=== PATIENT | female | born 1980 | race Caucasian/White ===

== ENCOUNTER 2025-06-17 13:20 | Outpatient (AMB) | payer BC, SELFPAY ==
--- OUTSIDE RECORDS SUMMARY | 2025-01-20 05:30 | XMS_ITS ---
Author Organization [facility] [address] Address [address] [place] [address] Care Team Providers Care Medical Engineer Name Role Phone Analy Rosasin Unavailable [phone] VERONICA MTZ Unavailable [phone] Encounters Encounter Location Date Provider Diagnosis [facility] [address] [address] 01/20/2025 VERONICA MTZ Plan Of Treatment No Information Progress Notes * Mag STOREYDOB:[birth year] (45 yo F)Acc No.[id number]:01/20/2025 Patient: Derik nolanfidelJose ArmandoMag Provider: Diane MTZ PA-C :1980 A ge:44 Y S ex:Female Date:01/20/2025 Address:[address] [place] [id number] * Electronic signature of MARLYN MTZ PA-C on 06/17/2025 at 04:07 PM EST Sign off status: Pending * Provider: Diane MTZ PA-C Date: 0 01/20/2025 Generated for Printi ng/Faloring/eTransmitting on: 1 08/17/2024 04:07 PM EST
--- NOTE | 2025-06-17 13:33 | A.OFFPC_ITS ---
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 Presenting for a new patient visit to establish care, manage her ADHD, and address weight concerns. She has a diagnosis of ADHD and is currently taking Concerta, which was previously prescribed by an online provider. She reports the Concerta is working well and also helps with her social anxiety. The patient's primary concern is her weight, stating she has never been this heavy before, even during her pregnancies. She reports experiencing heartburn since her weight gain, which she manages with Tums. She does not currently exerc ise, citing fatigue after work and lack of motivation. The patient is in the initial stages of evaluation to be a living kidney donor for a friend and has upcoming scans and tests scheduled. mammogram: ordered colonoscopy: ordered today pap smear: s/p hysterectomy [facility] Surgical History H/O: hysterectomy Previous section Family History Father Alcohol abuse Mother No problems noted. 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 1. Little interest or pleasure in doing things: not at all 2. Feeling down, depressed, or hopeless: not at all 3. Trouble falling or staying asleep, or sleeping too much: several days 4. Feeling tired or having little energy: several days 5. Poor appetite or overeating: not at all 6. Feeling bad about yourself - or that you are a failure or have let yourself or your family down: not at all 7. Trouble concentrating on things, such as reading the newspaper or watching television: several days 8. Moving or speaking so slowly that other people could have noticed. Or the opposite - being so fidgety or restless that you have been moving around a lot more than usual: not at all 9. Thoughts that you would be better off or of hurting yourself in some way: not at all Total score: 3 Depression Screening Interpretation: Negative Depression Screening Done: Yes 16031 - PHQ-9 Billing: Yes Source: Developed by Drs. Brannon Burks, Lora Burr, Joo Mancuso and colleagues, with an educational alo from [employer]. Thrive Questionnaire Date Thrive assessed: 06/10/25 I am a: Patient What is your living situation today?: I have a steady place to live Within the past 12 months, did the food you bought not last and you didn't have the money to get more?: Never true Within the past 12 months, did you worry whether your food would run out before you got money to buy more?: Never true Do you have trouble paying for medicines?: No Do you have trouble getting transportation to medical appointments?: No Do you have trouble paying your heating and electricity bill?: No Do you have trouble taking care of your child, family member or friend?: No Do you have trouble with day-to-day activities such as bathing, preparing meals, shopping, managing finances, etc.?: No Are you currently unemployed and looking for a job?: No Are you interested in more education?: No Please select the resources that you would like help with: None Currently or been in a relationship where the following occur: No concerns reported THRIVE Score: 0 AUDIT C Alcohol Use Questionnaire (AUDIT-C) 1. How often do you have a drink containing alcohol?: Monthly or less 2. How many drinks containing alcohol do you have on a typical day when you are drinking?: 1 or 2 3. How often do you have six or more drinks on one occasion?: Less than monthly Total Score: 2 LIZA-7 AMB Questionnaire LIZA-7 Date LIZA - 7 assessed: 06/17/25 Feeling nervous, anxious, or on edge: 0 = Not at all Not being able to stop or control worryin = Not at all Worrying too much about different things: 0 = Not at all Trouble relaxin = Not at all Being so restless that it is hard to sit still: 0 = Not at all Becoming easily annoyed or irritable: 0 = Not at all Feeling afraid as if something awful might happen: 0 = Not at all Total LIZA-7 score (0-4 normal; 5-9 mild; 10-14 moderate; 15-21 severe): 0 Source: Developed by Drs. Brannon Bukrs, Lora Burr, Joo Mancuso and colleagues, with an educational alo from [employer]. Review of Systems Const Denies body aches, Denies chills, Denies fever(s), Denies headache(s) and Denies poor appetite Eyes Reports no additional complaints ENT Denies dizziness and Denies headache(s) Card Denies chest pain, Denies edema, Denies irregular heart rhythm, Denies lightheadedness and Denies dyspnea Resp Denies dyspnea GI Denies abdominal pain, Denies constipation, Reports heartburn, Denies diarrhea, Denies nausea and Denies vomiting Reports no additional complaints Musc Reports no additional complaints and Denies abnormal gait Skin/Breast Reports system reviewed and no additional complaints, except as documented Neuro Denies abnormal gait, Denies dizziness and Denies headache(s) Psych Reports no additional complaints Physical exam (Primary Care) Vital Signs: Last Vital Signs Temp 97.3 F 06/17/25 13:41 Pulse 80 06/17/25 13:41 BP 130/86 06/17/25 13:41 Pulse Ox 98 06/17/25 13:41 Oxygen Delivery Method Room Air 06/17/25 13:41 BMI result Body Mass Index 34.3 Tobacco/Smoking Status: Tobacco use Status Tobacco use date assessed 06/17/25 06/17/25 13:47 Patient Tobacco Use Status Never used Tobacco 06/17/25 13:47 Tobacco use type Cigarette 06/17/25 13:47 e-Cigarette/Vaping Use Never Used 06/17/25 13:47 PHQ-9: PHQ-9 Score PHQ-9: Total score 3 06/17/25 13:39 Depression Screening Interpretation: Negative Thrive Assessment: Date of Thrive Assessment Date Thrive assessed 06/10/25 06/17/25 13:34 Currently or been in a relationship where the following occur: No concerns reported Const General: cooperative, healthy appearing, comfortable and no acute distress Orientation/consciousness: patient oriented x3 HENMT Head: Yes normocephalic Ears: hearing grossly normal bilaterally General nose exam: Normal external nose present Eyes General: appearance normal, both eyes and all related structures Conjunctivae: conjunctivae normal Neck Neck: Yes full ROM and Yes no lymphadenopathy Resp Effort & Inspection: normal respiratory effort Auscultation: clear to auscultation bilaterally, no crackles, no rales, no rhonchi and no wheezes Cardio Rate: regular rate Rhythm: regular rhythm Skin General skin exam: no rashes or lesions noted Neuro General: patient oriented x3 Gait exam (Neuro): Normal gait present Extrem General: Yes normal to inspection, Yes full ROM and No edema Psych Affect: normal affect Attitude: cooperative Insight: Good insight present (Psych) Judgement: Good judgement present (Psych) Coding Level of Care Code New Pt Level 4 (73358) Diagnoses Family history of colon cancer Z80.0 Family history of Crohn's disease Z83.79 ADHD F90.9 Vitamin D deficiency E55.9 Obesity (BMI 30.0-34.9) E66.9 Pre-diabetes R73.03 Heartburn R12 Additional Codes PHQ-9 - 27446 - PHQ-9 Billing: Yes ([id number]) Assessment & Plan Assessment & Plan (1) Family history of colon cancer: Comment: grandmother @91 Code(s): Z80.0 - Family history of malignant neoplasm of digestive organs Category: Medical Plan: Patient has not yet had colon cancer screening. Referral was placed to GI today. (2) Family history of Crohn's disease: Comment: son and daughter Code(s): Z83.79 - Family history of other diseases of the digestive system Category: Medical Plan: See above (3) ADHD: Code(s): F90.9 - Attention-deficit hyperactivity disorder, unspecified type Category: Medical Plan: Patient has been using Concerta as prescribed by psych but is no longer following with this provider. PLan to maintain this Rx and was sent today. (4) Vitamin D deficiency: Code(s): E55.9 - Vitamin D deficiency, unspecified Category: Medical Plan: Ordered for repeat blood work. (5) Obesity (BMI 30.0-34.9): Code(s): E66.9 - Obesity, unspecified Category: Medical Plan: Healthy diet and regular exercise is encouraged. Discussed GLP injections however she will have to check with the transplant team prior to initiating this medication. (6) Pre-diabetes: Code(s): R73.03 - Prediabetes Category: Medical Plan: Decrease the amount of carbohydrates such as pasta, bread, rice, and potatoes and limit the amount of sweets. Although fruits are generally healthy they should be eaten in moderation as they are still high in sugar. (7) Heartburn: Code(s): R12 - Heartburn Category: Medical Plan: Avoid trigger foods such as citrus, tomato products, soda, caffeine, spicy foods and other foods that may be irritating to your stomach. Avoid laying flat 3-4 hours after eating and elevate the head of the bed 30 degrees to prevent acid from moving into the esophagus. Continue on Tums prn Plan This note was constructed using voice recognition software. While every effort has been made to ensure accuracy and oracle manager, still areas may have been included sometimes these areas may affect the content or meeting of the given symptoms. Total time spent caring for the patient today was 30 minutes. This includes time spent before the visit reviewing the chart, time spent during the visit, and time spent after the visit and documentation. Patient was informed and verbally consented to the use of an ambient scribe for clinic note documentation during this visit. Orders: Orders MM tomosynthesis screening BI Today Z12.31 - Encounter for screening mammogram for malignant neoplasm of breast TSH reflex Free T4 Today Z13.29 - Encounter for screening for other suspected endocrine disorder Vitamin D 25-OH Total Today Z13.21 - Encounter for screening for nutritional disorder Vitamin B12 and Folate Today Z13.21 - Encounter for screening for nutritional disorder Referrals Gastroenterology Referral Z12.11 - Encounter for screening for malignant neoplasm of colon, Z80.0 - Family history of malignant neoplasm of digestive organs
[2025-06-17 13:41] VITALS: BP 130/86; PULSE 80; TEMP 36.3; O2SAT 98; BMI 34.3
--- OUTSIDE RECORDS SUMMARY | 2025-06-17 16:07 | XMS_ITS | Patient Health Record ---
[facility] [address] Address [address] [place] [address] Care Team Providers Care Hole Digger Name Role Phone Enedelia Rosas Unavailable [phone] SMITHVERONICA CAO Unavailable [phone] Allergies No Known Allergies Reason For Referral No Information Medications Medication SIG (Take, Route, Frequency, Duration) Notes Start Date End Date Status Phentermine HCl 15 MG Capsule 1 capsule Orally Once a day; Duration: 30 days 06/10/2021 Active Multi Complete - Capsule as directed Orally Active Vitamin D Active Social History Tobacco Use: Social History Observation Description Date Details (start date - stop date) Current Smoker NA - NA Social History Tobacco Use: Social Info Question Answer Notes Tobacco Use/Smoking Are you a current smoker How often do you smoke cigarettes? some days, but not every day Section Notes: smoked occasionally smoked occasionally smoked occasionally smoked occasionally Problems Problem Type SNOMED Code ICD Code Onset Dates Problem Status W/U Status Risk Notes Problem Obesity (913813021) Other obesity (E66.8) Active confirmed Problem Body mass index 30.00 to 34.99 ([id number]) BMI 31.0-31.9,henny lt (Z68.31) Active confirmed Problem Body mass index 30+ - obesity ([id number]) BMI 30.0-30.9,henny lt (Z68.30) Active confirmed Plan Of Treatment No Information Insurance Providers Payer Name Payer Address Payer Phone Subscriber Number Group Number Insured Name Patient Relationship to Insured Coverage Start Date Coverage End Date [facility] [address] [place] [address] [id number] Mag Marks Self - patient is the insured Medications Administered Medication Instructions Date of Administration Dosage Notes MICC B12 INJECTION 05/27/2021 lot # [id number] MICC B12 INJECTION 06/10/2021 lot # [id number] MICC B12 INJECTION 06/28/2021 Medical (General) History Surgical History Surgery Date(Month/Year) c sections x 2 Hospitalization History Reason Date(Month/Year) child births x4 - 2 day stays
--- OUTSIDE RECORDS SUMMARY | 2025-06-17 16:07 | XMS_ITS | Clinical Summary ---
Author Organization [facility] Address [facility] [place] [address] [address] Phone Care Team Providers Care Stage Hand Name Role Phone Unknown, Unknown Primary Care Provider Mulugeta bull Allergies No known active allergies Social History Tobacco Use Types Packs/Day Years Used Date Smoking Tobacco: Never Assessed Education Answer Date Recorded Are you interested in more education? Not on raymon e 12/02/2022 Are you concerned about learning? Not on file 12/02/2022 No 12/02/2022 No 12/02/2022 Digital Access Answer Date Recorded No 01/02/2023 No 01/02/2023 Reliable internet access at home? Not on file 01/02/2023 Device with a working camera? Not on file Comments Unknown Sex and Gender Information Value Date Recorded Sex Assigned at Not on file Legal Sex Female 9:26 AM EDT Gender Identity Not on file Sexual Orientation Not on file Last Filed Vital Signs Vital Sign Reading Time Taken Comments Blood Pressure 104/71 11/18/2021 1:00 PM EDT Pulse 77 11/18/2021 1:00 PM EDT Temperature 37 C (98.6 F) 11/18/2021 9:36 AM EDT Respiratory Rate 18 11/18/2021 1:00 PM EDT Oxygen Saturation 98% 11/18/2021 1:00 PM EDT Inhaled Oxygen Concentration - - Weight 70.3 kg (155 lb) 11/18/2021 9:36 AM EDT Height 162.6 cm (5' 4 ) 11/18/2021 9:36 AM EDT Body Mass Index 26.61 11/18/2021 9:36 AM EDT Plan of Treatment Not on file Medical Devices Not on file Insurance AETNA HMO POS EPO AETNA HMO POS EPO AET[employer] HMO POS EPO O POS EPO O POS EPO AETNA HMO POS EPO AETNA O POS EPO AETNA HMO POS EPO AETNA O POS EPO Care Teams Stage Hand Relationship Specialty Start Date End Date Unknown, Unknown, PCP - General 11/22/21 Additional Source Comments The information contained in this document represents components of the legal health record. It is not the complete legal health record.[facility]
--- OUTSIDE RECORDS SUMMARY | 2025-06-17 16:07 | XMS_ITS | Clinical Summary ---
Author Organization [facility] Address [address] [place] [address] Care Team Providers Care Special Assemblies Supervisor Name Role Phone Unavailable Primary Care Provider Unavailabl e Allergies No known active allergies Medications Medication Sig Dispensed Refills Start Date End Date Status ferrous sulfate 325 (65 FE) MG tablet Take 1 tablet (325 mg total) by mouth every other day. 60 tablet 0 01/27/2022 Active acetaminophen (TYLENOL) 325 MG tablet Take 2 tablets (650 mg total) by mouth every 6 (six) hours. 30 tablet 0 01/27/2022 Active ibuprofen 600 MG tablet Take 1 tablet (600 mg total) by mouth every 6 (six) hours. 30 tablet 0 01/27/2022 Active docusate sodium 100 MG CAPS Take 100 mg by mouth daily. 10 capsule 0 01/27/2022 Active polyethylene glycol (MIRALAX) 17 g packet Take 17 g by mouth daily. 14 each 0 01/27/2022 Active Social History Tobacco Use Types Packs/Day Years Used Date Smoking Tobacco: Every Day Smokeless Tobacco: Never Alcohol Use Standard Drinks/Week Comments Yes 0 (1 standard drink = 0.6 oz pur e alcohol) socially Sex and Gender Information Value Date Recorded Sex Assigned at Female 06/21/2021 1:31 PM EST Gender Identity Not on file Sexual Orientation Not on file Job Start Date Occupation Industry Not on file Not on file Not on file Last Filed Vital Signs Vital Sign Reading Time Taken Comments Blood Pressure 117/68 01/27/2022 7:58 AM EDT Pulse 80 01/27/2022 7:58 AM EDT Temperature 36.7 C (98.1 F) 01/27/2022 7:58 AM EDT Respiratory Rate 12 01/27/2022 7:58 AM EDT Oxygen Saturation 98% 01/27/2022 4:20 AM EDT Inhaled Oxygen Concentration - - Weight 83.9 kg (185 lb) 01/23/2022 9:32 AM EDT Height 167.6 cm (5' 6 ) 01/23/2022 9:32 AM EDT Body Mass Index 29.86 01/23/2022 9:32 AM EDT Plan of Treatment Health Maintenance Due Date Last Done Comments Hepatitis B Vaccines (1 of 3 - 3-dose series) 1979 Hepatitis C Screening 1979 Pneumococcal Vaccine (1 of 2 - PCV) 1985 Depression Screening 1991 BMI Counseling 1997 Preventative Health Evaluation 1997 Tobacco Cessation Counseling 1997 DTap / Tdap / Td (1 - Tdap) 1998 Cervical Cancer Screening (P ap Smear) 02/29/2000 Colon Cancer Screening (Colonoscopy) 02/29/2024 COVID-19 Vaccine (2 - 2024-2 6 season) 2025 09/22/2020 Influenza Vaccine (#1) 2025 RSV Ped < 20 months Aged Out No longe r eligible based on patient's age to complete this topic Medical Devices Implanted Type Area Firewall Security Engineer Device Identifier Shelf Expiration Date Model / Serial / Lot Hemostat Surg Ah Nohemi 3gm Crba-Davl [id number] - [id number] Implanted:Qt y: 1 on 01/26/2022 by Epifanio Anderson MD at [facility] [place] [facility] Hemostatic Agent N/A: Abdomen CR BARD - DAVOL DIV 09/02/2024 [id number] / / [id number] Advance Directives For more information, please contact: [phone] Latest Code Status on File Code Status Date Activated Date Inactivated Comments Full Code 01/26/2022 3:11 PM 01/27/2022 4:24 PM This code status was ascertained in the following way: discussion with patient . Code Status History Code Status Date Activated Date Inactivated Comments Full Code 07/05/2021 8:56 AM 07/05/2021 8:10 PM Thi s code status was ascertained in the following way: Patient discussion. .
--- OUTSIDE RECORDS SUMMARY | 2025-06-17 16:07 | XMS_ITS | Clinical Summary ---
Author Organization [facility] it Address [address] [place] [address] Care Team Providers Care Construction Trades Teacher Name Role Phone Mike Mckinley DO Primary Care Provider [phone] Surgical History Surgery Date Site/Laterality Comments HYSTERECTOMY PROCEDURE: HISTORICAL HYSTERECTOMY Family History Relation Name Status Comments Father Alive Mother Alive Social History Tobacco Use Types Packs/Day Years Used Date Smoking Tobacco: Never Smokeless Tobacco: Never Alcohol Use Standard Drinks/Week Comments Yes 0 (1 standard drink = 0.6 oz pur e alcohol) Comments Unknown Sex and Gender Information Value Date Recorded Sex Assigned at Not on file Legal Sex Female 7:57 AM EST Gender Identity Not on file Sexual Orientation Not on file Obstetrics History Last Filed Vital Signs Vital Sign Reading Time Taken Comments Blood Pressure 114/68 06/14/2022 1:56 PM EST Pulse 77 06/14/2022 1:56 PM EST Temperature - - Respiratory Rate - - Oxygen Saturation - - Inhaled Oxygen Concentration - - Weight 90.7 kg (200 lb) 06/14/2022 1:56 PM EST Height 167.6 cm (5' 6 ) 06/14/2022 1:56 PM EST Body Mass Index 32.28 06/14/2022 1:56 PM EST Plan of Treatment Health Maintenance Due Date Last Done Comments Breast Cancer Screening 1979 Colorectal Cancer Screening: Colonoscopy 1979 DTaP,Tdap,and Td Vaccines (1 - Tdap) 1998 Hepatitis B Vaccines (1 of 3 - 19+ 3-dose series) 1998 Cervical Cancer Screening: P ap Smear 02/29/2000 HIV Screening 07/09/2022 Hepatitis C Screening 07/09/2022 Social Influencers of Health Screening 07/09/2022 Depression Screening 08/06/2024 COVID-19 Vaccine (2024-2 6 season) 2025 06/13/2021, 09/12/2020, 09/01/2020 Influenza Vaccine (#1) 2025 06/01/2022 RSV Immunization Adult Patients (1 - 1-dose 75+ series) 2054 HIB Vaccines Aged Out No longer eligi ble based on patient's age to complete this topic HPV Vaccines Aged Out No longer eligi ble based on patient's age to complete this topic Hepatitis A Vaccines Aged Out No long er eligible based on patient's age to complete this topic IPV Vaccines Aged Out No longer eligi ble based on patient's age to complete this topic MMR Vaccines Aged Out No longer eligi ble based on patient's age to complete this topic Meningococcal ACWY Vaccine Aged Out N o longer eligible based on patient's age to complete this topic Meningococcal B Vaccine Aged Out No l onger eligible based on patient's age to complete this topic Pneumococcal Vaccine: Pediatrics (0 to 5 Years) and At-Risk Patients (6 to 49 Years) Aged Out No longer eligible b ased on patient's age to complete this topic RSV Immunization Patients Under 20 months Aged Out No longer eligible b ased on patient's age to complete this topic Varicella Vaccines Aged Out No longer eligible based on patient's age to complete this topic Medical Devices Implanted Type Area Editor Producer Device Identifier Shelf Expiration Date Model / Serial / Lot Hemostat Surg Ah Nohemi 3gm Crba-Davl [id number] Implanted:Qty : 1 on 01/26/2022 by Epifanio Anedrson MD Implants N/A: Abdomen CR BARD - DAVOL DIV 09/02/[address] A / / [id number] Care Teams Construction Trades Teacher Relationship Specialty Start Date End Date Mike Mckinley DO [address] [facility] [place] [address] PCP - General 06/09/22
== END 2025-06-17 14:25 | disposition home or self-care (01) ==
LOC: HO.HMCH 13:21
DX: R73.03 Prediabetes (principal); E55.9 Vitamin D deficiency, unspecified; E66.9 Obesity, unspecified; Z68.34 Body mass index [BMI] 34.0-34.9, adult; Z80.0 Family history of malignant neoplasm of digestive organs; Z83.79 Family history of other diseases of the digestive system; F90.9 Attention-deficit hyperactivity disorder, unspecified type; R12 Heartburn

== ENCOUNTER → 2025-06-17 13:20 | Outpatient (BNVA) | payer BC, SELFPAY | DX: R73.03 Prediabetes (principal); F90.9 Attention-deficit hyperactivity disorder, unspecified type; E55.9 Vitamin D deficiency, unspecified; E66.9 Obesity, unspecified; R12 Heartburn; Z68.34 Body mass index [BMI] 34.0-34.9, adult; Z79.899 Other long term (current) drug therapy; Z80.0 Family history of malignant neoplasm of digestive organs; Z83.79 Family history of other diseases of the digestive system | CPT/HCPCS: 96127 ==

== ENCOUNTER 2025-06-26 14:19 | Outpatient (REF) | payer BC, SELFPAY ==
--- OUTSIDE RECORDS SUMMARY | 2025-01-20 05:30 | XMS_ITS ---
Author Organization [facility] [address] Address [address] [place] [address] Care Team Providers Care Pharmacy Data Analyst Name Role Phone Analy Rosasin Unavailable [phone] VERONICA MTZ Unavailable [phone] Encounters Encounter Location Date Provider Diagnosis [facility] [address] [address] 01/20/2025 VERONICA MTZ Plan Of Treatment No Information Progress Notes * Mag STOREYDOB:[birth year] (45 yo F)Acc No.[id number]:01/20/2025 Patient: Derik nolanfidelJose ArmandoMag Provider: Diane MTZ PA-C :1980 A ge:44 Y S ex:Female Date:01/20/2025 Address:[address] [place] [id number] * Electronic signature of MARLYN MTZ PA-C on 06/26/2025 at 02:40 PM EST Sign off status: Pending * Provider: Diane MTZ PA-C Date: 0 01/20/2025 Generated for Printi ng/Faxing/eTransmitting on: 1 08/26/2024 02:40 PM EST
--- NOTE | ~2025-06-26 | MM_ITS ---
EXAMINATION: MM SCREENING DIGITAL BREAST TOMOSYNTHESIS, BILATERAL CLINICAL INFORMATION: Screening. Asymptomatic. COMPARISON: Mammography: Comparison is made with available priors TECHNIQUE: Digital breast mammography with tomosynthesis is performed in both the craniocaudal and mediolateral oblique views along with computer-aided detection (CAD). FINDINGS: There are scattered areas of fibroglandular density. There are no significant masses, abnormal calcifications, or other abnormalities. MM/MM tomosynthesis screening BI IMPRESSION: No mammographic evidence of malignancy. ASSESSMENT: BI-RADS Category 1: Negative RECOMMENDATION: Routine annual mammography screening. 1 year F/U This examination should not preclude the clinical evaluation of a suspicious palpable abnormality. This patient's information was entered into a reminder system with a target due date for their next mammogram. Electronically signed by: Candi Trinh DO 06/30/2025 09:06 AM KARL
--- OUTSIDE RECORDS SUMMARY | 2025-06-26 14:41 | XMS_ITS | Patient Health Record ---
[facility] [address] [address] [place] [address] Care Team Providers Care Hypnotherapist Name Role Phone Enedelia Rosas Unavailable [phone] SMITHVERONICA CAO Unavailable [phone] Allergies No Known Allergies Reason For Referral [...] Status W/U Status Risk Notes Problem Obesity (592553915) Other obesity (E66.8) Active confirmed Problem Body mass index 30.00 to 34.99 ([id number]) BMI 31.0-31.9,henny lt (Z68.31) Active confirmed Problem Body mass index 30+ - obesity (588219145) BMI 30.0-30.9,henny lt (Z68.30) Active confirmed Plan Of Treatment No Information Insurance Providers Payer Name Payer Address Payer Phone Subscriber Number Group Number Insured Name Patient Relationship to Insured Coverage Start Date Coverage End Date [facility] [address] [place] [address] [id number] E Mag Marks Self - patient is the insured Medications Administered Medication Instructions Date of Administration Dosage Notes MICC B12 INJECTION 05/27/2021 lot # [id number] MICC B12 INJECTION 06/10/2021 lot # [id number] MICC B12 INJECTION 06/28/2021 Medical (General) History Surgical History Surgery Date(Month/Year) c sections x 2 Hospitalization History Reason Date(Month/Year) child births x4 - 2 day stays
--- OUTSIDE RECORDS SUMMARY | 2025-06-26 14:41 | XMS_ITS | Data Portability ---
Author Organization [place] - [facility], [facility] Address [address] [place] [address] Care Team Providers Care General Magistrate Name Role Phone MEE FRAZIER Primary Care Provider Assessment No assessment recorded. Plan of Treatment Reminders Order Date Submit Date Provider Last Modified By Organization Details Last Modified Time Details Appointments None recorded. Lab urinalysis , dipstick 2021 [email or web address] In-Office Order, Internal Use Only DO Not Attach Compendium DO Not Attach Compendium, Do Not Delete/merge, [id number] 11:34:23 CBC w/ auto diff 2021 [facility], [address] [place] [address], [id number], 16:54:35 type + screen, serum 2021 [facility], [address] [place] [address], [address], 17:36:45 test, urine 2021 [email or web address] In-Office Order, Internal Use Only DO Not Attach Compendium DO Not Attach Compendium, Do Not Delete/merge, [id number] 09:41:00 Referral None recorded. Procedures None recorded. Surgeries None recorded. Imaging MAMMO, screening, digital, bilateral - If dense breasts, please proceed with bilateral breast screening ultrasound . 2021 022 [facility], [address], [place], [address], 16:18:31 Medication Orders None recorded. Patient TargetsNo targets recorded. Patient Instructions Encounter Date Encounter Id Patient Instructions Last Modified By Organization Details Last Modified Time 12/07/2021 [id number] heavy menstrual periods: care instructions rberke Not available 12/07/2021 17:20:40 iron deficiency anemia: care instructions rberke Not available 12/07/2021 17:20:40 02/14/2022 [id number] iron deficiency anemia: care instructions rberke Not available 02/14/2022 10:51:48 Reason for Referral None Reported. Results Created Date Observation Date Name Description Value Unit Range Abnormal Flag Note LastModifiedBy Organization Detail LastModifiedTime 12/03/1912/02/2021 pregn donna test, urine Result negati ve Not Available In-Office Order Internal Use Only DO Not Attach Compendium DO Not Attach Compendium, Do Not Delete/merge, [id number] 12/02/2021 09:17:40 01/25/20 22 01/24/2022 BUN BUN 18 mg/dL 7-17 high Perfo [place]med at [facility] [place] [address] [place] [id number] , Allis on MRyan bravo MD [facility] CLIA [id number] CL 0623 Not Available [address], [address], 01/24/2022 16:10:03 01/25/20 22 01/24/2022 CREAT ININE creatinine 1.0 mg/dL 0.5-1. 0 Not Available [address], [address], 01/24/2022 16:10:05 01/25/20 22 01/24/2022 CREAT ININE estimated GFR >60.0 >60.0 MDRD in mL/mi n/1.7 3 sq meter s. For Afric an Ameri cans, multi ply by 1.21. Perfo [place]med at [facility] [place] [address] [place] [address] and [facility] [place] [address] , Allis on M. Aleksandra bravo MD [facility] tor CLIA [id number] CL 0623 Not Available [address], [address], 01/24/2022 16:10:05 01/25/20 22 01/24/2022 CBC WBC 4.3 K/uL 4.0-10 .5 Not Available [address], [address], 01/24/2022 16:54:35 01/25/20 22 01/24/2022 CBC RBC 3.95 M/uL 4.2-5. 4 low Not Available [address], [address], 01/24/2022 16:54:35 01/25/20 22 01/24/2022 CBC HGB 9.2 g/dL 12.5-1 6.0 low Not Available [address], [address], 01/24/2022 16:54:35 01/25/20 22 01/24/2022 CBC HCT 29.3 % 37-47 low Not Available [address], [address], 01/24/2022 16:54:35 01/25/20 22 01/24/2022 CBC MCV 74.3 fL 78-100 low Not Available [address], [address], 01/24/2022 16:54:35 01/25/20 22 01/24/2022 CBC MCH 23.4 pg 25-33 low Not Available [address], [address], 01/24/2022 16:54:35 01/25/20 22 01/24/2022 CBC MCHC 31.4 g/dL 32-36 low Not Available [address], [address], 01/24/2022 16:54:35 01/25/20 22 01/24/2022 CBC RDW 19.9 % 12.1-1 6.2 high Not Available [address], [address], 01/24/2022 16:54:35 01/25/20 22 01/24/2022 CBC plt 228 K/uL 150-45 0 Not Available [address], [address], 01/24/2022 16:54:35 01/25/20 22 01/24/2022 CBC MPV 8.5 fL 7.4-11 .4 Not Available [address], [address], 01/24/2022 16:54:35 01/25/20 22 01/24/2022 CBC differential type AUTOMA SIOMARA Not Available [address], [address], 01/24/2022 16:54:35 01/25/20 22 01/24/2022 CBC neutro 67.5 % 44-74 Not Available [address], [address], 01/24/2022 16:54:35 01/25/20 22 01/24/2022 CBC lymph 22.9 % 20-48 Not Available [address], [address], 01/24/2022 16:54:35 01/25/20 22 01/24/2022 CBC mono 8.7 % 2-12 Not Available [address], [address], 01/24/2022 16:54:35 01/25/20 22 01/24/2022 CBC eosin 0.0 % 0-6 Not Available [address], [address], 01/24/2022 16:54:35 01/25/20 22 01/24/2022 CBC baso 0.9 % 0-2 Not Available [address], [address], 01/24/2022 16:54:35 01/25/20 22 01/24/[address], abs 3.0 K/uL 1.8-7. 8 Not Available [address], [address], 01/24/2022 16:54:35 01/25/20 22 01/24/[address], abs 1.0 K/uL 1.0-3. 2 Not Available [address], [address], 01/24/2022 16:54:35 01/25/20 22 01/24/[address], abs 0.4 K/uL 0.0-0. 8 Not Available [address], [address], 01/24/2022 16:54:35 01/25/20 22 01/24/[address], abs 0.0 K/uL 0.0-0. 5 Not Available [address], [address], 01/24/2022 16:54:35 01/25/20 22 01/24/[address], abs 0.0 K/uL 0.0-0. 2 Perfo rmed at [facility] [place] [facility] [place] [address] [facility] [place] [address] , Allis on MRyan bravo MD [facility] tor CLIA [id number] CL 0623 Not Available [address], [address], 01/24/2022 16:54:35 01/25/20 22 01/24/2022 TYPE AND SCREE N ABO/Rh O POSITI VE Not Available [address], [address], 01/24/2022 17:36:45 01/25/20 22 01/24/2022 TYPE AND SCREE N antibody screen NEGATI VE Not Available [address], [address], 01/24/2022 17:36:45 01/25/20 22 01/24/2022 TYPE AND SCREE N bb comment chart Testi ng perfo rmed at [facility] [place] [facility] [address] [address] , Allis on Aleksandra bravo MD [facility] [place], CLIA [id number] CL062 3 Not Available [address], [address], 01/24/2022 17:36:45 04/06/20 22 04/07/2022 BUN/C REATI NINE RATIO urea nitrogen (BUN) 13 mg/dL 7-25 normal Not Available [facility] [address], [address], 04/07/2022 03:47:14 04/06/20 22 04/07/2022 BUN/C REATI NINE RATIO creatinine 0.96 mg/dL 0.50-0 .99 normal Not Available [facility] [address], [address], 04/07/2022 03:47:14 04/06/20 22 04/07/2022 BUN/C REATI NINE RATIO eGFR 75 mL/mi n/1.7 3m2 > or = 60 normal The eGFR is based on the CKD-E PI 2020 equat ion. To calcu late the new eGFR from a previ ous Creat inine or Cysta tin C resul t, go to https :[email or web address] [email or web address] suggs bijan s/ kdoqi /gfr% 5Fcal culat or Not Available [facility] [place] [facility] [address], [place], [address], 04/07/2022 03:47:14 04/06/20 22 04/07/2022 BUN/C REATI NINE RATIO BUN/creatini ne ratio NOT APPLIC ABLE (calc ) 6-22 Not Available [facility] [place] [facility] [address], [place], [address], 04/07/2022 03:47:14 04/06/20 22 04/07/2022 CBC (INCL UDES DIFF/ PLT) white blood cell count 6.3 thous and/u L 3.8-10 .8 normal Not Available [facility] [place] [facility] [address], [place], [address], 04/07/2022 03:47:15 04/06/20 22 04/07/2022 CBC (INCL UDES DIFF/ PLT) red blood cell count 5.04 candida on/uL 3.80-5 .10 normal Not Available [facility] [place] [facility] [address], [place], [address], 04/07/2022 03:47:15 04/06/20 22 04/07/2022 CBC (INCL UDES DIFF/ PLT) hemoglobin 10.5 g/dL 11.7-1 5.5 low Not Available [facility] [place] [facility] [address], [place], [address], 04/07/2022 03:47:15 04/06/20 22 04/07/2022 CBC (INCL UDES DIFF/ PLT) hematocrit 36.2 % 35.0-4 5.0 normal Not Available [facility] [place] [facility] [address], [place], [address], 04/07/2022 03:47:15 04/06/20 22 04/07/2022 CBC (INCL UDES DIFF/ PLT) MCV 71.8 fL 80.0-1 00.0 low Not Available [facility] [place] [facility] [address], [place], [address], 04/07/2022 03:47:15 04/06/20 22 04/07/2022 CBC (INCL UDES DIFF/ PLT) MCH 20.8 pg 27.0-3 3.0 low Not Available [facility] [place] [facility] [address], [place], [address], 04/07/2022 03:47:15 04/06/20 22 04/07/2022 CBC (INCL UDES DIFF/ PLT) MCHC 29.0 g/dL 32.0-3 6.0 low Not Available [facility] [place] [facility] [address], [place], [address], 04/07/2022 03:47:15 04/06/20 22 04/07/2022 CBC (INCL UDES DIFF/ PLT) RDW 18.4 % 11.0-1 5.0 high Not Available [facility] [place] [facility] [address], [place], [address], 04/07/2022 03:47:15 04/06/20 22 04/07/2022 CBC (INCL UDES DIFF/ PLT) platelet count 256 thous and/u L 140-40 0 normal Not Available [facility] [place] [facility] [address], [place], [address], 04/07/2022 03:47:15 04/06/20 22 04/07/2022 CBC (INCL UDES DIFF/ PLT) MPV 10.7 fL 7.5-12 .5 normal Not Available [facility] [place] [facility] [address], [place], [address], 04/07/2022 03:47:15 04/06/20 22 04/07/2022 CBC (INCL UDES DIFF/ PLT) absolute neutrophils 3900 cells /uL 1500-7 800 normal Not Available [facility] [place] [facility] [address], [place], [address], 04/07/2022 03:47:15 04/06/20 22 04/07/2022 CBC (INCL UDES DIFF/ PLT) absolute lymphocytes 1802 cells /uL 850-39 00 normal Not Available [facility] [place] [facility] [address], [place], [address], 04/07/2022 03:47:15 04/06/20 22 04/07/2022 CBC (INCL UDES DIFF/ PLT) absolute monocytes 567 cells /uL 200-95 0 normal Not Available [facility] [place] [facility] [address], [place], [address], 04/07/2022 03:47:15 04/06/20 22 04/07/2022 CBC (INCL UDES DIFF/ PLT) absolute eosinophils 0 cells /uL 15-500 low Not Available [facility] [place] [facility] [address], [place], [address], 04/07/2022 03:47:15 04/06/20 22 04/07/2022 CBC (INCL UDES DIFF/ PLT) absolute basophils 32 cells /uL 0-200 normal Not Available [facility] [place] [facility] [address], [place], [address], 04/07/2022 03:47:15 04/06/20 22 04/07/2022 CBC (INCL UDES DIFF/ PLT) neutrophils 61.9 % normal Not Available [facility] [place] [facility] [address], [place], [address], 04/07/2022 03:47:15 04/06/20 22 04/07/2022 CBC (INCL UDES DIFF/ PLT) lymphocytes 28.6 % normal Not Available [facility] [place] [facility] [address], [place], [address], 04/07/2022 03:47:15 04/06/20 22 04/07/2022 CBC (INCL UDES DIFF/ PLT) monocytes 9.0 % normal Not Available [facility] [place] [facility] [address], [place], [address], 04/07/2022 03:47:15 04/06/20 22 04/07/2022 CBC (INCL UDES DIFF/ PLT) eosinophils 0.0 % normal Not Available [facility] [place] [facility] [address], [place], [address], 04/07/2022 03:47:15 04/06/20 22 04/07/2022 CBC (INCL UDES DIFF/ PLT) basophils 0.5 % normal Not Available [facility] [place] [facility] [address], [place], [address], 04/07/2022 03:47:15 06/02/20 22 06/02/2022 IRON, TIBC AND MARKUS TIN PANEL iron, total 68 mcg/d L 40-190 normal Not Available [facility] [place] [facility] [address], [place], [address], 06/02/2022 23:12:06 06/02/20 22 06/02/2022 IRON, TIBC AND MARKUS TIN PANEL iron binding capacity 395 mcg/d L_(ca lc) 250-45 0 normal Not Available [facility] [place] [facility] [address], [place], [address], 06/02/2022 23:12:06 06/02/20 22 06/02/2022 IRON, TIBC AND MARKUS TIN PANEL % saturation 17 %_(ca lc) 16-45 normal Not Available [facility] [place] [facility] [address], [place], [address], 06/02/2022 23:12:06 06/02/20 22 06/02/2022 IRON, TIBC AND MARKUS TIN PANEL ferritin 13 NG/mL 16-232 low Not Available [facility] [place] [facility] [address], [place], [address], 06/02/2022 23:12:06 06/02/20 22 06/02/2022 CBC (INCL UDES DIFF/ PLT) white blood cell count 6.9 thous and/u L 3.8-10 .8 normal Not Available [facility] [place] [facility] [address], [place], [address], 06/02/2022 23:12:07 06/02/20 22 06/02/2022 CBC (INCL UDES DIFF/ PLT) red blood cell count 5.34 candida on/uL 3.80-5 .10 high Not Available [facility] [place] [facility] [address], [place], [address], 06/02/2022 23:12:07 06/02/20 22 06/02/2022 CBC (INCL UDES DIFF/ PLT) hemoglobin 13.8 g/dL 11.7-1 5.5 normal Not Available [facility] [place] [facility] [address], [place], [address], 06/02/2022 23:12:07 06/02/20 22 06/02/2022 CBC (INCL UDES DIFF/ PLT) hematocrit 42.6 % 35.0-4 5.0 normal Not Available [facility] [place] [facility] [address], [place], [address], 06/02/2022 23:12:07 06/02/20 22 06/02/2022 CBC (INCL UDES DIFF/ PLT) MCV 79.8 fL 80.0-1 00.0 low Not Available [facility] [place] [facility] [address], [place], [address], 06/02/2022 23:12:07 06/02/20 22 06/02/2022 CBC (INCL UDES DIFF/ PLT) MCH 25.8 pg 27.0-3 3.0 low Not Available [facility] [place] [facility] [address], [place], [address], 06/02/2022 23:12:07 06/02/20 22 06/02/2022 CBC (INCL UDES DIFF/ PLT) MCHC 32.4 g/dL 32.0-3 6.0 normal Not Available [facility] [place] [facility] [address], [place], [address], 06/02/2022 23:12:07 06/02/20 22 06/02/2022 CBC (INCL UDES DIFF/ PLT) RDW 23.1 % 11.0-1 5.0 high Not Available [facility] [place] [facility] [address], [place], [address], 06/02/2022 23:12:07 06/02/20 22 06/02/2022 CBC (INCL UDES DIFF/ PLT) platelet count 226 thous and/u L 140-40 0 normal Not Available [facility] [place] [facility] [address], [place], [address], 06/02/2022 23:12:07 06/02/20 22 06/02/2022 CBC (INCL UDES DIFF/ PLT) MPV 10.6 fL 7.5-12 .5 normal Not Available [facility] [place] [facility] [address], [place], [address], 06/02/2022 23:12:07 06/02/20 22 06/02/2022 CBC (INCL UDES DIFF/ PLT) absolute neutrophils 4375 cells /uL 1500-7 800 normal Not Available [facility] [place] [facility] [address], [place], [address], 06/02/2022 23:12:07 06/02/20 22 06/02/2022 CBC (INCL UDES DIFF/ PLT) absolute lymphocytes 1980 cells /uL 850-39 00 normal Not Available [facility] [place] [facility] [address], [place], [address], 06/02/2022 23:12:07 06/02/20 22 06/02/2022 CBC (INCL UDES DIFF/ PLT) absolute monocytes 504 cells /uL 200-95 0 normal Not Available [facility] [place] [facility] [address], [place], [address], 06/02/2022 23:12:07 06/02/20 22 06/02/2022 CBC (INCL UDES DIFF/ PLT) absolute eosinophils 0 cells /uL 15-500 low Not Available [facility] [place] [facility] [address], [place], [address], 06/02/2022 23:12:07 06/02/20 22 06/02/2022 CBC (INCL UDES DIFF/ PLT) absolute basophils 41 cells /uL 0-200 normal Not Available [facility] [place] [facility] [address], [place], [address], 06/02/2022 23:12:07 06/02/20 22 06/02/2022 CBC (INCL UDES DIFF/ PLT) neutrophils 63.4 % normal Not Available [facility] [place] [facility] [address], [place], [address], 06/02/2022 23:12:07 06/02/20 22 06/02/2022 CBC (INCL UDES DIFF/ PLT) lymphocytes 28.7 % normal Not Available [facility] [place] [facility] [address], [place], [address], 06/02/2022 23:12:07 06/02/20 22 06/02/2022 CBC (INCL UDES DIFF/ PLT) monocytes 7.3 % normal Not Available [facility] [place] [facility] [address], [place], [address], 06/02/2022 23:12:07 06/02/20 22 06/02/2022 CBC (INCL UDES DIFF/ PLT) eosinophils 0.0 % normal Not Available [facility] [address], [place], [address], 06/02/2022 23:12:07 06/02/20 22 06/02/2022 CBC (INCL UDES DIFF/ PLT) basophils 0.6 % normal Not Available [facility] [place] [facility] [address], [place], [address], 06/02/2022 23:12:07 06/02/20 22 06/02/2022 CBC (INCL UDES DIFF/ PLT) comment(s) Revie w of perip heral smear confi cirilo autom ated resul ts. Not Available [facility] [address], [address], 06/02/2022 23:12:07 06/23/20 22 06/23/2022 urina lysis , dipst ick Interpretati on negati ve Not Available In-Office Order Internal Use Only DO Not Attach Compendium DO Not Attach Compendium, Do Not Delete/merge, [id number] 06/23/2022 08:06:19 06/23/20 22 06/23/2022 urina lysis , dipst ick Leukocytes Negati ve Not Available In-Office Order Internal Use Only DO Not Attach Compendium DO Not Attach Compendium, Do Not Delete/merge, [id number] 06/23/2022 08:06:19 06/23/20 22 06/23/2022 urina lysis , dipst ick Nitrite negati ve Not Available In-Office Order Internal Use Only DO Not Attach Compendium DO Not Attach Compendium, Do Not Delete/merge, [facility] 06/23/2022 08:06:19 06/23/20 22 06/23/2022 urina lysis , dipst ick Urobilinogen Normal : 0.2 mg/dl Not Available In-Office Order Internal Use Only DO Not Attach Compendium DO Not Attach Compendium, Do Not Delete/merge, [facility] 06/23/2022 08:06:19 06/23/20 22 06/23/2022 urina lysis , dipst ick Protein Negati ve Not Available In-Office Order Internal Use Only DO Not Attach Compendium DO Not Attach Compendium, Do Not Delete/merge, [facility] 06/23/2022 08:06:19 06/23/20 22 06/23/2022 urina lysis , dipst ick pH 5.0 Not Available In-Office Order Internal Use Only DO Not Attach Compendium DO Not Attach Compendium, Do Not Delete/merge, [facility] 06/23/2022 08:06:19 06/23/20 22 06/23/2022 urina lysis , dipst ick Blood Negati ve Not Available In-Office Order Internal Use Only DO Not Attach Compendium DO Not Attach Compendium, Do Not Delete/merge, [facility] 06/23/2022 08:06:19 06/23/20 22 06/23/2022 urina lysis , dipst ick Specific [place] 1.000 Not Available In-Off ice Order Internal Use Only DO Not Attach Compendium DO Not Attach Compendium, Do Not Delete/merge, [facility] 06/23/2022 08:06:19 06/23/20 22 06/23/2022 urina lysis , dipst ick Ketone Negati ve Not Available In-Office Order Internal Use Only DO Not Attach Compendium DO Not Attach Compendium, Do Not Delete/merge, [facility] 06/23/2022 08:06:19 06/23/20 22 06/23/2022 urina lysis , dipst ick Bilirubin Negati ve Not Available In-Office Order Internal Use Only DO Not Attach Compendium DO Not Attach Compendium, Do Not Delete/merge, [id number] 06/23/2022 08:06:19 06/23/2006/23/2022 urina lysis , dipst ick Glucose Negati ve Not Available In-Office Order Internal Use Only DO Not Attach Compendium DO Not Attach Compendium, Do Not Delete/merge, [id number] 06/23/2022 08:06:19 06/23/20 22 06/23/2022 urina lysis , dipst ick Appearance Clear Not Available In-Offi ce Order Internal Use Only DO Not Attach Compendium DO Not Attach Compendium, Do Not Delete/merge, [id number] 06/23/2022 08:06:19 06/23/2006/23/2022 urina lysis , dipst ick Color Yellow Not Available In-Office Order Internal Use Only DO Not Attach Compendium DO Not Attach Compendium, Do Not Delete/merge, [id number] 06/23/2022 08:06:19 09/29/19 23 09/30/2022 IRON AND TOTAL IRON IVETT NG CAPAC ITY iron, total 58 mcg/d L 40-190 normal Not Available [facility] [address], [address], 09/30/2022 05:03:28 09/29/19 23 09/30/2022 IRON AND TOTAL IRON IVETT NG CAPAC ITY iron binding capacity 346 mcg/d L_(ca lc) 250-45 0 normal Not Available [facility] [address], [address], 09/30/2022 05:03:28 09/29/19 23 09/30/2022 IRON AND TOTAL IRON IVETT NG CAPAC ITY % saturation 17 %_(ca lc) 16-45 normal Not Available [facility] [address], [address], 09/30/2022 05:03:28 09/29/19 23 09/30/2022 CBC (INCL UDES DIFF/ PLT) white blood cell count 8.1 thous and/u L 3.8-10 .8 normal Not Available [facility] [place] [facility] [address], [place], [address], 09/30/2022 05:03:28 09/29/19 23 09/30/2022 CBC (INCL UDES DIFF/ PLT) red blood cell count 5.02 candida on/uL 3.80-5 .10 normal Not Available [facility] [place] [facility] [address], [place], [address], 09/30/2022 05:03:28 09/29/1909/30/2022 CBC (INCL UDES DIFF/ PLT) hemoglobin 15.1 g/dL 11.7-1 5.5 normal Not Available [facility] [place] [facility] [address], [place], [address], 09/30/2022 05:03:28 09/29/1909/30/2022 CBC (INCL UDES DIFF/ PLT) hematocrit 44.0 % 35.0-4 5.0 normal Not Available [facility] [place] [facility] [address], [place], [address], 09/30/2022 05:03:28 09/29/1909/30/2022 CBC (INCL UDES DIFF/ PLT) MCV 87.6 fL 80.0-1 00.0 normal Not Available [facility] [place] [facility] [address], [place], [address], 09/30/2022 05:03:28 09/29/19 23 09/30/2022 CBC (INCL UDES DIFF/ PLT) MCH 30.1 pg 27.0-3 3.0 normal Not Available [facility] [address], [place], [address], 09/30/2022 05:03:28 09/29/1909/30/2022 CBC (INCL UDES DIFF/ PLT) MCHC 34.3 g/dL 32.0-3 6.0 normal Not Available [facility] [place] [facility] [address], [place], [address], 09/30/2022 05:03:28 09/29/19 23 09/30/2022 CBC (INCL UDES DIFF/ PLT) RDW 13.3 % 11.0-1 5.0 normal Not Available [facility] [place] [facility] [address], [place], [address], 09/30/2022 05:03:28 09/29/1909/30/2022 CBC (INCL UDES DIFF/ PLT) platelet count 219 thous and/u L 140-40 0 normal Not Available [facility] [address], [place], [address], 09/30/2022 05:03:28 09/29/1909/30/2022 CBC (INCL UDES DIFF/ PLT) MPV 10.7 fL 7.5-12 .5 normal Not Available [facility] [place] [facility] [address], [place], [address], 09/30/2022 05:03:28 09/29/1909/30/2022 CBC (INCL UDES DIFF/ PLT) absolute neutrophils 5297 cells /uL 1500-7 800 normal Not Available [facility] [address], [place], [address], 09/30/2022 05:03:28 09/29/1909/30/2022 CBC (INCL UDES DIFF/ PLT) absolute lymphocytes 2122 cells /uL 850-39 00 normal Not Available [facility] [address], [place], [address], 09/30/2022 05:03:28 09/29/19 23 09/30/2022 CBC (INCL UDES DIFF/ PLT) absolute monocytes 632 cells /uL 200-95 0 normal Not Available [facility] [place] [facility] [address], [place], [address], 09/30/2022 05:03:28 09/29/19 23 09/30/2022 CBC (INCL UDES DIFF/ PLT) absolute eosinophils 16 cells /uL 15-500 normal Not Available [facility] [place] [facility] [address], [place], [address], 09/30/2022 05:03:28 09/29/19 23 09/30/2022 CBC (INCL UDES DIFF/ PLT) absolute basophils 32 cells /uL 0-200 normal Not Available [facility] [place] [facility] [address], [place], [address], 09/30/2022 05:03:28 09/29/19 23 09/30/2022 CBC (INCL UDES DIFF/ PLT) neutrophils 65.4 % normal Not Available [facility] [address], [place], [address], 09/30/2022 05:03:28 09/29/19 23 09/30/2022 CBC (INCL UDES DIFF/ PLT) lymphocytes 26.2 % normal Not Available [facility] [address], [place], [address], 09/30/2022 05:03:28 09/29/19 23 09/30/2022 CBC (INCL UDES DIFF/ PLT) monocytes 7.8 % normal Not Available [facility] [address], [place], [address], 09/30/2022 05:03:28 09/29/19 23 09/30/2022 CBC (INCL UDES DIFF/ PLT) eosinophils 0.2 % normal Not Available [facility] [address] [place], [address], 09/30/2022 05:03:28 09/29/19 23 09/30/2022 CBC (INCL UDES DIFF/ PLT) basophils 0.4 % normal Not Available [facility] [address], [place], [address], 09/30/2022 05:03:28 11/08/19 22 07/05/2021 hyste neida py (PROC ) No observ ation record ed. BARCODE Not Available 2021 12:20:57 12/03/19 22 12/02/2021 US, salin e infus ed uteru s No observ ation record ed. shammell Not Available 2021 08:05:18 12/17/19 22 12/16/2021 US, trans vagin al No observ ation record ed. rberke [facility] [address], [place], [address], 12/25/2021 22:41:08 01/17/20 22 01/16/2022 US, breas t, unila teral No observ ation record ed. shammell [facility] [address], [place], [address], 01/25/2022 13:00:59 05/07/20 24 07/05/2001 imagi ng/di agnos tic resul t No observ ation record ed. [email or web address] Not Available 2023 12:35:27 Result Notes None recorded. Problems Name Problem SNOMED Code Status Onset Date Resolution Date Notes Provider Name and Address Organization Details Recorded Time Attention deficit hyperactivity disorder 513491819 Active 2017 ESTHER MARSH DO 175 [facility], 3rd Floor, [place], [address], [place] [facility] 8 12:11:52 Problem Notes None recorded. Procedures Surgical History Date Name Laterality Status Provider Name and Address Organization Details Recorded Time 04/17/20 27 Date of Last Pap Smear completed Luh Phillips [facility] 06/23/2022 08:04:32 01/27/20 22 laparoscopic-ass isted vaginal hysterectomy completed Vidhya Anne [facility] 02/14/2022 08:52:49 12/08/19 22 Telemedicine Visit completed HENRY GOYAL MD 175 [facility], [address] [place] [address], [place], [address], [facility] 12/07/2021 16:57:25 12/03/19 22 Saline Infusion Sonogram (SIS) completed MAXIMILIAN GUTIERREZ CNM 175 [facility], [address] [place] [address], [address], [facility] 12/02/2021 09:38:54 11/25/19 22 Telemedicine Visit completed HENRY GOYAL MD [address] [facility], [address] [place] [address], [address], [facility] 11/24/2021 16:05:55 07/05/20 21 hysteroscopy with biopsy completed Vidhya Anne [facility] 07/20/2021 08:39:25 06/14/20 21 Endometrial Biopsy Procedure Note completed HENRY GOYAL MD [address], [address] [place] [address], [phone], [facility] 06/14/2021 12:30:15 06/01/20 21 Date of Last Mammogram completed Luh Phillips [facility] 06/23/2022 08:04:48 05/31/20 21 Saline Infusion Sonogram (SIS) completed HENRY GOYAL MD [address] [facility], [address] [place] [address], [address], [facility] 05/31/2021 14:59:38 05/13/20 19 IUD Removal completed MAXIMILIAN GUTIERREZ CNM [address], [address] [place] [address], [phone], [facility] 05/13/2019 11:14:53 Caesarean Section completed Not Available [facility] 01/21/2015 14:30:23 Imaging Results None recorded. Procedure Notes None recorded. Medical Equipment None Reported. Allergies Allergen ID Allergen Name Allergen Category Reaction Reaction Severity Criticality Documentation Date Start Date Code Code System Note Provider Name and Address Organization Details Recorded Time 964429 No known allergy (situatio n) Not available Not available Not available Not available 01/12/20152014 01094 6003 SNOMED Not Available [facility] 5 09:34:52 No known drug allergies Medications Name Sig Start Date Stop Date Status Note LastModified by Organization Details LastModified Time danazol 50 mg capsule TAKE 1 CAPSULE BY ORAL ROUTE 2 TIMES EVERY DAY 11/02 completed PRESCRIB ED ELSEWHER E Not Available Not Available Not Available phentermi ne 15 mg capsule 02/14 completed Not Available Not Available Not Available Zantac 150 mg tablet TAKE 1 TABLET BY ORAL ROUTE 2 TIMES EVERY DAY 11/02 completed PRESCRIB ED ELSEWHER E Not Available Not Available Not Available oxycodone -acetamin ophen 5 mg-325 mg tablet 10/04 completed Not Available Not Available Not Available hydromorp ravinder 2 mg tablet 02/14 completed Not Available Not Available Not Available Adderall XR 10 mg capsule,e xtended release 10/04 completed Not Available Not Available Not Available ibuprofen 600 mg tablet active Not Available Not Available Not Available Adderall XR 25 mg capsule,e xtended release 10/04 completed Not Available Not Available Not Available atomoxeti ne 40 mg capsule 10/04 completed Not Available Not Available Not Available atomoxeti ne 80 mg capsule 05/13 completed Not Available Not Available Not Available FeroSul 325 mg (65 mg iron) tablet active Not Available Not Available Not Available Zyrtec 10 mg capsule 11/02 completed PRESCRIB ED ELSEWHER E Not Available Not Available Not Available Orilissa 200 mg tablet Take by oral route for 30 days. 02/14 completed Not Available Not Available Not Available ID NOW COVID-19 Test Kit TEST DIRECTED active Not Available Not Available No t Available Myfembree 40 mg-1 mg-0.5 mg tablet Take 1 tablet every day by oral route for 26 days. 02/14 completed Not Available Not Available Not Available Vitals Date Recorded Body height Body mass index (BMI) Body weight Heart rate Oxygen saturation Respiratory rate Systolic And Diastolic Provider Name and Address Organization Details Last Updated DateTime 167.64 cm 29.1 kg/m2 78424.6 3 g 88 /min 98 % 18 /min 118/76 mm[Hg] Vidhya Anne [facility] 2 09:21:57 Date Recorded Body height Systolic And Diastolic Provider Name and Address Organization Details Last Updated DateTime 02/14/2022 167.64 cm 124/76 mm[Hg] Vidhyashey Denguer [facility] 02/14/2022 10:10:51 Date Recorded Body height Body mass index (BMI) Body weight Systolic And Diastolic Provider Name and Address Organization Details Last Updated DateTime 06/23/2022 167.64 cm 32.4 kg/m2 30782.07 g 118/74 mm[Hg] Luh Phillips [facility] 06/23/2022 09:06:46 Social History Question Answer Notes LastModified by Organizat ion Details LastModified Time Tobacco Smoking Status Former Smoker Esther Roopa torres, [facility] 11/22/2021 08:14:10 Is Blood Transfusion Acceptable In An Emergency? Yes [email or web address] Information not available 11/22/2021 Concerns About Meeting Basic Needs (food, Housing, Heat, Etc)? No Information not available 11/22/2021 In The 14 Days Before Symptom Onset, Have You Had Close Contact With A Laboratory-confirm ed COVID-19 While That Case Was Ill? No [email or web address] Information n ot available 11/22/2021 In The 14 Days Before Symptom Onset, Have You Had Close Contact With A Person Who Is Under Investigation For COVID-19 While That Person Was Ill? No Information not available 11/22/2021 Have You Been To An Area Known To Be High Risk For COVID-19? No Information not available 11/22/2021 Do You Reside In Or Have You Traveled To An Area Where Ebola Virus Transmission Is Active? No Information not available 11/22/2021 Have There Been Any Changes To Your Family Or Social Situation? No [email or web address] Information no t available 11/22/2021 Have You Recently Or Are You Planning To Travel To An Area With Zika Virus? No [email or web address] Information not available 11/22/2021 Do You Have Any Children? Yes [email or web address] Information not available 05/13/2019 Does Your Partner Physically Hurt You Or Threaten To Hurt You? No [email or web address] Information not available 10/04/2017 Has Your Partner Forced You To Have Sex Or Perform Sex Acts When You Did Not Want To? No [email or web address] Information not available 10/04/2017 Does Your Partner Insult, Scream At Or Talk Down To You? No [email or web address] Information not available 10/04/2017 Does Your Partner Control You Or Any Part Of Your Life? No [email or web address] Information n ot available 10/04/2017 Are You Afraid Of Your Partner? No [email or web address] Information not available 10/04/2017 Drug Use? No [email or web address] Information no t available 10/04/2017 Do You Feel Safe At Home? Yes [email or web address] Information not available 10/04/2017 What Was The Date Of Your Most Recent Tobacco Screening? 06/23/2022 [email or web address] Information not available 06/23/2022 How Many Children Do You Have? 4 [email or web address] Information not available 11/22/2021 Are You Sexually Active? Yes Information not available 11/22/2021 General Stress Level Medium [email or web address] Information not available 11/22/2021 Have You Recently Traveled Abroad? No [email or web address] Information not available 06/08/2021 Sex: Unknown Functional Status Question Answer Note LastModified by Organizat ion Details LastModified Time What is your level of alcohol consumption? Occasional [email or web address] Information not available 11/22/2021 Do you or have you ever used smokeless tobacco? Never used smokeless tobacco [email or web address] Information not available 11/22/2021 Are you currently employed? Yes [email or web address] Information not available 11/22/2021 Do you or have you ever used e-cigarettes or vape? Never used electronic cigarettes [email or web address] Information not available 11/22/2021 What is your exercise level? Heavy Information not available 11/22/2021 Mental Status Question Answer Note LastModified by Organization D etails LastModified Time Do you have difficulty concentrating, remembering or making decisions? No [email or web address] Information no t available 11/22/2021 Family History Relationship Description Onset Age of this Age Resolved Age Notes LastModified by Organization Details LastModified Time Unspecified Relation Malignant neoplasm of ovary Matern al Great Aunt shammell Not available 04/22/2021 14:31:45 Unspecified Relation Malignant neoplasm of breast Matern al Great Aunt [email or web address] Not available 09/28/2017 16:06:04 Mother Disorder of thyroid gland [email or web address] Not available 2017 16:06:17 Mother Hypertensive disorder [email or web address] Not available 2017 16:06:35 Maternal Grandmother Malignant neoplasm of cervix uteri shammell Not available 14:31:45 Maternal Grandmother Malignant neoplasm of colon shammell Not available 2020 14:31:45 Maternal Grandmother Malignant neoplasm of ovary shammell Not available 2020 14:31:45 Medical History Condition Response Anxiety Disorder N HIV N Diabetes N Heart Problems N Blood Transfusions N HSV N *No Diseases or Conditions N Blood clots N Cancer N Kidney or Bladder Problems N Stroke N Abuse/Domestic Violence N Thyroid Problems N Lung Disease N Asthma N Depression N Defects or Inherited Disease N Hepatitis N Anesthesia Complications N Neurological Disorder N Hypertension N Osteoporosis N Psychiatric Illness N Gynecological History Statement/Question Response Current Control Method Hysterectom y Date of Last Mammogram 06/01/2021 Sexually Active? Y IPV Screen Done 06/23/2022 Breast Ultrasound Y Sexual Problems? N Date of Last Pap Smear 04/17/2027 Obstetrics History GPAL:G 3 P 0 0 0 3 Type Value Living 3 Total 3 Immunizations Vaccine Type Date Status Note Provider Nam e and Address Organization Details Recorded Time COVID-19, mRNA, LNP-S, PF, 30 mcg/0.3 mL dose 09/22/2020 completed Vidhya Anne [place], [place] [facility] 05/09/2021 13:47:19 Past Encounters Encounter ID Performer Location Encounter Start Date Encounter Closed Date Diagnosis/Indication Diagnosis SNOMED-CT Code Diagnosis ICD10 Code Diagnosis IMO Codes Diagnosis Note [id number] [facility] [address] [place] [address] 08/20/2012 00:00:00 [id number] [facility] [address] [place] [address] 11/02/2014 00:00:00 [id number] [facility] [address] [facility] [place] [address] 12/22/2014 00:00:00 [id number] ESTHER MARSH, DO [facility] [address] [facility] [place] [address] 10/04/2017 11:11:16 10/15/2017 10:04:02 Gynecologic examination 99258859 Z01.419 Pap with HPV Rx baseline mammogram [id number] MAXIMILIAN GUTIERREZ CNM [facility] [place] [address] 05/13/2019 09:59:28 05/13/2019 11:24:51 Gynecologic examination 06371441 Z01.419 Screening mammography 24 631898 Z12.31 SBE taught and reviewed, mammogram every year. Depression screening 171 815405 Z13.31 Reviewed depression screening with patient- Score= 0. Removal of intrauterine device 24244066 Z30.432 Tolerated well. No need for BC at this time as no longer sexually active. Family his tory of breast cancer 121669411 Z80.3 Discussed history and reviewed hereditary cancer screening. Pt feels like she may have got genetic testing in past. Will call previous practice as we don't see any documentat ion. Pt to have them send it. Will talk with MGM who is sister of great aunt who had ovarian/br east. Family his tory of malignant neoplasm of ovary 013257063 Z80.41 [id number] DANNIELLE GOLD APRN [facility] [address] [place] [address] 04/22/2021 14:22:14 04/22/2021 15:07:35 Gynecologic examination 63506010 Z01.411 Screening mammography 24 573562 Z12.31 Advised to obtain a yearly screening mammogram and to perform monthly self breast exam. Depression screening 171 283818 Z13.31 Depression screening done. Menorrhagia 531191324 N9 2.0 menses regular PMS; Flow lasts 7+ days with first 4 days very heavy Requests consult with Dr Goyal regarding possibilit es of hysterecto my Does not want another IUD and rejects OCP management of cycles G4; Para 4 [id number] HENRY GOYAL MD [facility] [address] [facility] [address] [place] [address] 05/09/2021 13:28:15 05/09/2021 14:19:58 test negative 352778738 Z32.02 Menorrhagia 989496021 N9 2.0 advised u/s (SIS) and lab work. If all normal, discussed performing EMBx and considerin g a cryoablati on. If patient is not in the 85-90% of patients that have improved bleeding after, can consider a LAVH. Patient agrees to plan. Does not want another IUD (she is in a same sex relationsh ip and no need for BC presently and does not want OCPs. Gynecologi c examination 12741992 Z01.509 [id number] HENRY GOYAL MD [address] [place] [address] 05/31/2021 13:44:56 05/31/2021 14:42:23 Submucous leiomyoma of uterus 96099963 D25.0 Appears to have a significan t intra-cavi tary component. Will schedule myosure resection. will check EMBx prior to verify no EIN and if OK will proceed with Hysterosco pic resection. [id number] HENRY GOYAL MD [facility] [facility] [place] [address] 06/14/2021 10:56:52 06/14/2021 12:28:49 Menorrhagia 310184230 N92.0 SIS performed which revealed a posterior submucosal fibroid. Scheduled for hysterosco py with Myosure resection. EMBx performed to r/o any hyperplasi a etc, prior to procedure. as pre-op scheduled fo 06/22. test negative 431958809 Z32.02 [id number] HENRY GOYAL MD [address] [place] [address] 06/22/2021 10:24:04 06/22/2021 11:39:55 Submucous leiomyoma of uterus 59380408 D25.0 Appears to have a significan t intra-cavi tary component of posterior sub-mucosa l fibroid. Patient is scheduled for hysterosco py with myosure resection of fibroid. EMBx last visit was benign.Ris ks, benefits, alternativ es to proposed procedure reviewed. Patient given adequate time to ask questions and seemed to demonstrat e an understand ing of the proposed procedure. Patient mainly concerned about menorrhagi a, and if not helpful in decreasing the menorrhagi a, would consider an endometria l ablation 3-4 months post re-section if bleeding has not improved.E ncounter time lasted (21 minutes) total with low decision making and which included the following times: reviewing chart/hist ory (3 minutes), patient exam (2 minutes), counseling patient (13 minutes); documentin g in patient record (3 minutes) ordering Rx through pharmacy (0 minutes). Start time: 11:05 AM, Stop time: 11:26 AM. [id number] HENRY GOYAL MD [address] [place] [address] 07/20/2021 11:13:55 07/20/2021 11:57:02 Submucous leiomyoma of uterus 25382413 D25.0 Doing well s/p resection of submucosal fibroid. Pathology reviewed with patient. Doing well currently. Will call for any bleeding concerns. Will observe for now. Annual due 04/2022. [id number] HENRY GOYAL MD [facility] [facility] [place] [address] 11/22/2021 08:12:37 11/22/2021 13:51:20 [id number] HENRY GOYAL MD TEL__SH EM_[facility]LE[facility] ALTH [address] [facility] [place] [address] 11/24/2021 08:59:55 11/24/2021 15:00:52 Menorrhagia 833040424 N92.0 Had hysterosco py with resection of myoma. amount of tissue was significan t and benign with weekly proliferat saran endometriu m, which could be a clue that patient is anovulator y also.Advis ed repeat SIS to see if patient would be a candidate for an ablation.P atient will schedule. Should re-check CBC and start iron if still low. Submucous leiomyoma of uterus 61987707 D25.0 u/s at ER showed a recurrence of submucosal fibroid. SIS to re-check. [id number] MAXIMILIAN GUTIERREZ CNM [facility] [facility] [place] [address] 12/02/2021 09:06:43 12/02/2021 09:34:46 Abnormal uterine bleeding 6493170646 9100 N93.9 Irregular and heavy bleeding has begun again. Submucous leiomyoma of uterus 12889088 D25.0 Fibroid visualized with SIS. RDB to review and pt to set up telehealth with pt. test negative 832322128 Z32.02 [id number] HENRY GOYAL MD TEL_10_SH EM_TELEHE ALTH [address] [facility] [place] [address] 12/07/2021 08:58:59 12/07/2021 15:40:10 Submucous leiomyoma of uterus 95868671 D25.0 u/s at ER showed a recurrence of sub-mucosa l fibroid. SIS and confirma a significan t amount of sub-mucosa l fibroid has grown again, and appears even larger than before despite a significan t amount of resection performed at last years hysterosco pic resection. Options of repeat hysterosco pic resection discussed, but encouraged to not proceed due to how fast the myoma reformed despite significan t amount of resection of fibroid material as documented on the pathology report. Advised that continued observatio n, would not be a good course since patient has frequently soaked clothing due to menorrhagi a. Also reviewed option of treatment with Myfembree, but this would not be a permanent solution and would have to continue until patient reached menopause which is at an average age of 50. Lastly option of hysterecto my (LAVH/DEREK with BS) discussed. We reviewed that she might have an increase risk due to her previous surgical history of c/w x 2. But since she also had a couple of vaginal deliveries , it might be reasonable to proceed with this if she would like to proceed with a permanent solution. R/B discussed such as anesthesia , hemorrhage , infection, injury to surroundin g structures including but not limited to bladder, bowel, ureters, nerves and blood vessels, possible need for blood transfusio n all reviewed.E ncounter time lasted (45 minutes) total with complex decision making and which included the following times: reviewing chart/hist ory (8 minutes), patient exam (0 minutes), counseling patient (25 minutes); documentin g in patient record (10 minutes) ordering Rx through pharmacy (2 minutes). Start time: 1:22 PM, Stop time: 2:07 PM. Menorrhagia 345530681 N9 2.0 Had hysterosco py with resection of myoma. amount of tissue was significan t and benign with weekly proliferat saran endometriu m, which could be a clue that patient is anovulator y also.Advis ed u/s to check for adhesive disease to see if uterus is adherent to posterior peritoneum .Patient will schedule. Should take iron and consider Myfembree (which is covered by patient's insurance to help prevent an episode of severe menorrhagi a prior to surgery. Iron defic iency anemia 30183798 D50.0 Since last ER visit at [facility] documented anemia of 9.9/30.6. Patient advised to start on iron one-two times daily, and advised to consider depo-lupro n to suppress bleeding until the surgery, so that she hopefully would avoid the possibilit y of a transfusio n.Can use depo-lupro n, or Orilissa for 2 cycles. The option of Orilissa 200 mg BID to suppress bleeding would give patient the option of stopping if has bad side affects. Will pre-auth for patient and try to start so can supress further bleeding and allow patient to build up blood prior to surgery. [id number] HENRY GOYAL MD [address] [place] [address] 01/04/2022 08:58:11 01/04/2022 10:13:44 Pre-surgery evaluation 206094609 Z01.818 Pre-op instructio ns including NPO after midnight except for any needed medication s with a small sip of water, avoidance of ASA or vitamin supplement s such as fish oil reviewed. Informed consent obtained after risks and benefits and alternativ es were reviewed. [id number] HENRY GOYAL MD [address] [place] [address] 02/14/2022 09:43:37 02/14/2022 10:47:08 Iron deficiency anemia 09113860 D50.0 s/p LAVH. Will obtain cbc, bun, creatinine in the next few weeks. Advised to continue iron supplement ation for at least the next few months. Can adjust following the BW. Postoperative visit 2517 55733 Z09 will see in 3 months, and re-check vaginal cuff healing. Advised to call for any unusual pain, or vaginal bleeding. [id number] DANNIELLE GOLD APRN [facility] [place] [address] 06/23/2022 08:41:39 06/23/2022 09:31:06 Gynecologic examination 72152659 Z01.411 Status post laproscopi c hysterecto my with ovarian retention for recurrent large sub mucosal fibroid. Feeling very well Still feeling a little tired did not take iron as directed Hemoglobin /hematocri t still a little low Has just started taking iron now Screening mammography 24 699675 Z12.31 Advised to obtain a yearly screening mammogram and to perform monthly self breast exam. Depression screening 171 468261 Z13.31 Depression screening done. Blood gluc ose outside reference range 689521649 R73.09 111 with normal Hemoglobin A1c. Needs yearly monitoring Body mass index 30+ - obesity 873854447 Z68.32 Health Concerns Section Related Observation LastModified by Organization Detai ls LastModified Time None Recorded Concern Status LastModified by Organization Details LastModified Time None Recorded Advance Directives Directive None Recorded Payers Insurance Date Sequence Insurance Name Policy Number Policy Botello Covered Member ID Botello Member ID Guarantor Name 04/23/2019 1 AETBELEM Thompson [id number] Mag A Marks 10/04/2017 1 [facility] [id number] Jamaal Thompson [id number] Mag A Marks 11/21/2021 1 [facility] [id number] Mag A Marks [id number] Mag A Marks 04/18/2021 1 [employer] (POS II) [id number] Jamaal Thompson [id number] Mag A Marks 07/03/2023 1 [employer] (POS) [id number] Nat A Marks [id number] Mag Marks Notes Date Note Type Note Provider Name and Address Organization Details Recorded Time 12/02/2021 text/html ROS as noted in the HPI Pt here for SIS due to irregular bleeding and hx of fibroids. Feels frustrated with fact that she had hysteroscopy/myosure done on 07/05/21 and now is back with irregular bleeding. MAXIMILIAN GUTIERREZ CNM [address], [address], [facility] 12/02/2021 09:42:00 12/07/2021 text/html telehealth visit for continued bleeding. HENRY GOYAL MD [address], [address], [facility] 12/13/2021 11:44:35 01/04/2022 text/html Pt presents for a pre op for [facility] for n92.0 and d25.0 HENRY GOYAL MD [address], [address], [facility] 01/04/2022 10:26:16 02/14/2022 text/html [facility] Post-OpRepor siomara by PatientHPIFor onset/timing, patient reportsdate of surgery: (01-26-22). For quality, patient reportsprocedure: (keisha, bs). For context, patient reportsreason for procedure: (fibroids, menorrhagia)andpatholo gy findings: (benign). For associated symptoms, patient reportsincision healing well,no fatigue,normal appetite,normal bowel function,no constipation,no nausea,no emesis,pain improving,no pain,no fever,no bleeding,no lower extremity edema/pain, andno dysuria/urinary symptoms. Pt here for post op Pt only states a little pain in her pelvis/abdomen. Cramping after walking around a lot. 12/13, improving HENRY GOYAL MD 175 [facility], [address] [place] [address], [address], [facility] 02/14/2022 10:51:51 06/23/2022 text/html [facility] Annual GYNRe ported by PatientHistoryFor history, patient reportsno gynecologic complaints.Genitourina ry symptomsFor urinary symptoms, patient reportsno hematuriaandno incontinence. For vulva, patient reportsno genital lesion. For vagina, patient reportsnormal vaginal discharge.Breast symptomsFor breast, patient reportsno breast pain,no breast lump, andno nipple discharge.Contraceptio nFor current contraception, patient reportssatisfied with current contraception,monogamo us relationship, andintrauterine device (iud).Endocrine symptomsFor sexual activity, patient reportsno sexual complaints,no pain during intercourse, andnormal libido.Psychological symptomsFor psychological symptoms, patient reportsno depression,no anxiety, andno pmdd.Preventative measuresFor preventive measures, patient reportsencourage self breast examination,encourage regular exercise,followed with pap smear and high risk hpv typing every 3 years, andmammogram performed within the past year. Here for annual visit Last pap was 04/22/2021.Pap done 04/22/2021 was neg/neg.Pt has hysterectomy 07/05/2021 with retention of ovaries done for recurrence of submucosa; fibroidMammo done 1Review of labs done for insurance Show slightly elevated glucose but normal Hemoglobin A1c ;slightly anemic from pre surgical prolonged bleeding Only started taking iron recently Liver function and cholesterol wnl. creatinine to be monitored family history of AOD in mother and grandmother DANNIELLE GOLD APRN [address] [facility], [address], [place], [address], [place] [facility] 06/23/2022 11:34:26 OBGyn Episode Ob Episode Information Episode Created Date Number of Fetuses Patient Bloodtype Patient rh Status Prepregnancy Weight lbs Domestic Partner Domestic Partner Phone Father Name Videogame Designer Status 10/05/19 18 1 CLOSED Fetus Data First Name Last Name Admitted to NICU Weight (g) Sex Living Outcome Pediatric Complications Fetus ID Race Codes Race Delivery Type 3628.73 6 M Full Term [id number] - Repeat Juan Calculation Initial Juan Date Initial Exam Date Initial Exam Provider Initial Ultrasound Date Last Menstrual Period Date Ultra Sound Weeks Gestation 0 Eighteen To Twenty Week Juan Update Ultra Sound Date Fundal Height At Umbil Quickening Date Ultra Sound Latest Weeks Gestation Final Juan Confirmed By Final Juan Confirmed Date Final Juan Date Ultra Sound Latest Days Gestation 0 0 Menstrual History Last Menstrual Date Menses Monthly On Bcp Conception Prior Menses Frequency Hcg Plus Date Menarche Onset Age Delivery Information Delivery Date Delivery Type Labor Anesthesia Weeks Gestation Incision Type Labor Labor Length Hrs Delivered By Post Complications Tubal Sterilization Discharge Date Comments 4 KMG Discharge Information Feeding Method Contraceptive Method Maternal HG B and HCT Levels Ob Episode Information Episode Created Date Number of Fetuses Patient Bloodtype Patient rh Status Prepregnancy Weight lbs Domestic Partner Domestic Partner Phone Father Name Videogame Designer Status 10/05/19 18 1 CLOSED Fetus Data First Name Last Name Admitted to NICU Weight (g) Sex Living Outcome Pediatric Complications Fetus ID Race Codes Race Delivery Type 3742.13 4 M Full Term [id number] - Primary Juan Calculation Initial Juan Date Initial Exam Date Initial Exam Provider Initial Ultrasound Date Last Menstrual Period Date Ultra Sound Weeks Gestation 0 Eighteen To Twenty Week Juan Update Ultra Sound Date Fundal Height At Umbil Quickening Date Ultra Sound Latest Weeks Gestation Final Juan Confirmed By Final Juan Confirmed Date Final Juan Date Ultra Sound Latest Days Gestation 0 0 Menstrual History Last Menstrual Date Menses Monthly On Bcp Conception Prior Menses Frequency Hcg Plus Date Menarche Onset Age Delivery Information Delivery Date Delivery Type Labor Anesthesia Weeks Gestation Incision Type Labor Labor Length Hrs Delivered By Post Complications Tubal Sterilization Discharge Date Comments 1 KMG Discharge Information Feeding Method Contraceptive Method Maternal HG B and HCT Levels Ob Episode Information Episode Created Date Number of Fetuses Patient Bloodtype Patient rh Status Prepregnancy Weight lbs Domestic Partner Domestic Partner Phone Father Name Videogame Designer Status 10/05/19 18 1 CLOSED Fetus Data First Name Last Name Admitted to NICU Weight (g) Sex Living Outcome Pediatric Complications Fetus ID Race Codes Race Delivery Type F Full Term [id number] Vaginal Delivery Juan Calculation Initial Juan Date Initial Exam Date Initial Exam Provider Initial Ultrasound Date Last Menstrual Period Date Ultra Sound Weeks Gestation 0 Eighteen To Twenty Week Juan Update Ultra Sound Date Fundal Height At Umbil Quickening Date Ultra Sound Latest Weeks Gestation Final Juan Confirmed By Final Juan Confirmed Date Final Juan Date Ultra Sound Latest Days Gestation 0 0 Menstrual History Last Menstrual Date Menses Monthly On Bcp Conception Prior Menses Frequency Hcg Plus Date Menarche Onset Age Delivery Information Delivery Date Delivery Type Labor Anesthesia Weeks Gestation Incision Type Labor Labor Length Hrs Delivered By Post Complications Tubal Sterilization Discharge Date Comments 2 Discharge Information Feeding Method Contraceptive Method Maternal HG B and HCT Levels Ob Episode Information Episode Created Date Number of Fetuses Patient Bloodtype Patient rh Status Prepregnancy Weight lbs Domestic Partner Domestic Partner Phone Father Name Videogame Designer Status 10/05/19 18 1 CLOSED Fetus Data First Name Last Name Admitted to NICU Weight (g) Sex Living Outcome Pediatric Complications Fetus ID Race Codes Race Delivery Type F Full Term [id number] Vaginal Delivery Juan Calculation Initial Juan Date Initial Exam Date Initial Exam Provider Initial Ultrasound Date Last Menstrual Period Date Ultra Sound Weeks Gestation 0 Eighteen To Twenty Week Juan Update Ultra Sound Date Fundal Height At Umbil Quickening Date Ultra Sound Latest Weeks Gestation Final Juan Confirmed By Final Juan Confirmed Date Final Juan Date Ultra Sound Latest Days Gestation 0 0 Menstrual History Last Menstrual Date Menses Monthly On Bcp Conception Prior Menses Frequency Hcg Plus Date Menarche Onset Age Delivery Information Delivery Date Delivery Type Labor Anesthesia Weeks Gestation Incision Type Labor Labor Length Hrs Delivered By Post Complications Tubal Sterilization Discharge Date Comments 1 Discharge Information Feeding Method Contraceptive Method Maternal HG B and HCT Levels
--- OUTSIDE RECORDS SUMMARY | 2025-06-26 14:41 | XMS_ITS | Clinical Summary ---
Author Organization [facility] Address [facility] [address] [address] Phone Care Team Providers Care Animal Breeder Name Role Phone Unknown, Unknown Primary Care [...] EPO [employer]ET[employer] O POS EPO Care Teams Animal Breeder Relationship Specialty Start Date End Date Unknown, Unknown, PCP - General 11/22/21 Additional Source Comments The information contained in this document represents components of the legal health record. It is not the complete legal health record.[facility]
--- OUTSIDE RECORDS SUMMARY | 2025-06-26 14:41 | XMS_ITS ---
Author Name [facility] Organization Unknown History of Medication Use Medication Directions Dispensed Refills Start Date End Date Stat us None recorded. (No additional sig information) completed FeroSul 325 mg (65 mg iron) tablet FeroSul 325 mg (65 mg iron) tablet completed ibuprofen 600 mg tablet ibuprofen 600 mg tablet completed Orilissa 200 mg tablet Take by oral route for 30 days. Take by oral route for 30 days. completed phentermine 15 mg capsule phentermine 15 mg capsule completed Allergies Allergen Reaction Severity Comment Documented Date Source Statu s NO KNOWN ALLERGIES [facility] Problems Problem Status Onset Date Problem Type Date of Resoluti on Source Attention deficit hyperactivity disorder active 2017-10-04 ProblemAct CTHLP Encounters Encounter Type Encounter Reason Primary Diagnosis Location Date Ambulatory [facility] 03/03/2024 Ambulatory [facility] 06/23/2022 [facility] 02/14/2022 [facility] 01/26/2022 [facility] 01/04/2022 [facility] 12/16/2021 [facility] 12/07/2021 [facility] 12/02/2021 [facility] 12/02/2021 [facility] 11/24/2021 [facility] 11/22/2021 [facility] 07/20/2021 [facility] 07/04/2021 [facility] 06[facility]22/2021 [facility] 06/14/2021 [facility] 05/31/2021 [facility] 05/31/2021 [facility] 05/09/2021 [facility] 04/22/2021 Care Team Organization Name Specialty Phone Email Start Date End Wild jasso [facility], [facility] 05/31/2023 [facility] 06/26/2022 [facility] 04/22/2021 06/23/2022
--- OUTSIDE RECORDS SUMMARY | 2025-06-26 14:41 | XMS_ITS | Clinical Summary ---
Author Organization [facility] it Address [address] [place] [address] Care Team Providers Care Assurance Sourcing Manager Name Role Phone Mike Mckinley DO Primary Care Provider [phone] Surgical History Surgery Date Site/Laterality Comments HYSTERECTOMY [...] this topic Medical Devices Implanted Type Area Hris Developer Device Identifier Shelf Expiration Date Model / Serial / Lot Hemostat Surg Ah Nohemi 3gm Crba-Davl [id number] Implanted:Qty : 1 on 01/26/2022 by Epifanio Anderson MD Implants N/A: Abdomen CR BARD - DAVOL DIV 09/02/[address] A / / [id number] Care Teams Assurance Sourcing Manager Relationship Specialty Start Date End Date Mike Mckinley DO [address] [place] [address] PCP - General 06/09/22
--- OUTSIDE RECORDS SUMMARY | 2025-06-26 14:41 | XMS_ITS | Clinical Summary ---
Author Organization [facility] Address [address] [place] [address] Care Team Providers Care Lacquer Machine Feeder Name Role Phone Unavailable Primary Care Provider [...] this topic Medical Devices Implanted Type Area Radio Interference Investigator Device Identifier Shelf Expiration Date Model / Serial / Lot Hemostat Surg Ah Nohemi 3gm Crba-Davl [id number] - [id number] Implanted:Qt y: 1 on 01/26/2022 by Epifanio Anderson MD at [facility] [place] [facility] and Med Hemostatic Agent N/A: Abdomen CR BARD - DAVOL DIV 09/02/2024 [id number] / / [id number] Advance Directives For more information, please contact: [phone] Latest Code Status on File Code Status [...]
== END 2025-06-26 14:20 | disposition home or self-care (01) ==
LOC: HO.MAMMO 14:19
DX: Z12.31 Encounter for screening mammogram for malignant neoplasm of breast (principal)
CPT/HCPCS: 77063; 77067

== ENCOUNTER → 2025-06-26 14:30 | Outpatient (BNV) | payer BC, SELFPAY | PROVIDERS: Visit Provider Internal Medicine | DX: Z12.31 Encounter for screening mammogram for malignant neoplasm of breast (principal) | CPT/HCPCS: 77063; 77067 ==

== ENCOUNTER 2025-07-15 10:56 | Outpatient (AMB) | payer BC, SELFPAY ==
--- NOTE | 2025-07-15 10:57 | MHC.OFFVIS ---
Vital Signs 07/15/25 11:02 Height 5 ft 6 in Weight 207 lb BMI 33.4 BP 134/78 Blood Pressure Location Rt brachial Position Sitting Pulse 76 Pulse Source Pulse Oximeter Pulse Oximetry (%) 97 Oxygen Delivery Method Room Air Intake Visit Reasons: Added from CL, Urgent [place] Screen. Kidney Donor Intake Note: New pt for initial colo consult. Pt plans to be kidney donor in the near future. CC: Pt denies any GI sx at this time. Does report pertinent FMHx (daughter, son, MGM). Computer Programmer Required: No Accompanied by: Self / Same As Patient Allergies No Known Allergies Allergy (Verified 07/15/25 11:00) HPI HPI Added from CL, Urgent [place] Screen. Kidney Donor: Details: 45 years old female with past medical history of heartburn, pre diabetes, obesity, ADHD is here today for pre colonoscopy screening.? Patient was sent to us by her PCP.? This is her first colonoscopy screening.? Patient is a donor of her kidney to a friend and needs colonoscopy to be done soon. Patient denies any gastrointestinal symptoms in the past or at present.? Family history of CRC. Patient's daughter and son both have Crohn's. Patient denies any GI concerning symptoms. Denies history of difficulty with sedation or anesthesia in the past.? Negative for history of sleep apnea.? Denies any history of cardiac, renal, pulmonary, or hepatic disease.?? No history of infectious? diseases like hepatitis A, B, C, HIV or tuberculosis.? Patient is not on any anticoagulation PFSH Surgical History H/O: hysterectomy Previous section Family History Father Alcohol abuse Mother No problems noted. 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 Cognitive needs: No Hearing needs: No Vision needs: No Review of Systems Const Denies weight gain and Denies weight loss ENT Reports no additional complaints, Denies dysphagia and Denies odynophagia Card Reports no additional complaints Resp Reports no additional complaints GI Denies abdominal pain, Denies belching, Denies melena, Denies bloating, Denies change in bowel habits, Denies dysphagia, Denies excessive flatus, Denies dyspepsia, Denies heartburn, Denies diarrhea, Denies loose stools, Denies nausea, Denies odynophagia and Denies vomiting Musc Reports no additional complaints Neuro Reports no additional complaints Psych Reports no additional complaints Endo Reports no additional complaints Physical Exam Vital Signs: BMI result Body Mass Index 33.4 Const General: healthy appearing, no acute distress and well developed Nutritional Appearance: well nourished Orientation/consciousness: patient oriented x3 Resp Effort & Inspection: normal respiratory effort, able to speak in complete sentences, no tracheal deviation and symmetric chest movement Auscultation: clear to auscultation bilaterally Cardio Rate: regular rate GI Inspection: Yes normal to inspection and No distended Palpation (GI): Soft to palpation, not firm, nontender and No hepatosplenomegaly present Auscultation: normal bowel sounds General: Yes no CVA tenderness Back/Spine/Pelvis Back: no CVA tenderness Skin General skin exam: elasticity normal, turgor normal and dry skin Neuro General: patient oriented x3 Psych Appearance: grossly normal Mental Status: mental status grossly normal Assessment & Plan Assessment & Plan (1) Heartburn: Code(s): R12 - Heartburn Category: Medical (2) Fatty liver: Code(s): K76.0 - Fatty (change of) liver, not elsewhere classified Category: Medical (3) Family history of Crohn's disease: Comment: son and daughter Code(s): Z83.79 - Family history of other diseases of the digestive system Category: Medical (4) Screen for colon cancer: Code(s): Z12.11 - Encounter for screening for malignant neoplasm of colon Plan Patient denies any GI, cardiac or respiratory symptoms.? Denies any issues with anesthesia in the past.? Denies any history of sleep apnea.? No history infectious diseases in the past or present.? Not on any anticoagulation therapy.? Family history of CRC. Patient reports that her grandmother was diagnosed with colorectal cancer at age 95., no treatment, 5 years later.? Patient's daughter and son both have Crohn's. No history of IBD in her side of the family. Patient denies melena, hematochezia, unintentional weight loss or ribbon like stools.? Discussed at length the pre-procedure,? prep, diet & medications as well as what to expect prior, during and after the procedure.?? Stressed the importance of good bowel prep.? Recommended the use of Vaseline or Calmoseptine OTC & baby wipes with bowel movements to promote comfort.? ?Patient verbalizes understanding and agrees to plan of care.? She was given the opportunity to ask questions and all questions answered.? We will see her after the procedure.? Orders: Referrals GI Procedure Notification Z12.11 - Encounter for screening for malignant neoplasm of colon Medications: New polyethylene glycol 3350 (Miralax) As directed by gastroenterology department at [facility] 238 grams PO ONCE 238 grams 0RF Z12.11 - Encounter for screening for malignant neoplasm of colon bisacodyl (Dulcolax (bisacodyl)) take 4 tabs at noon the day before your colonoscopy 20 mg (4 x 5 mg) PO ONCE 4 tabs 0RF constipation 1 day Z12.11 - Encounter for screening for malignant neoplasm of colon Coding Level of Care Code New Pt Level 3 (55501) Diagnoses Heartburn R12 Fatty liver K76.0 Family history of Crohn's disease Z83.79 Screen for colon cancer Z12.11 Time Spent (min) 40 Comment 30 minutes spent with patient and additional 10 minutes spent reviewing her records
[2025-07-15 11:02] VITALS: BP 134/78; PULSE 76; O2SAT 97; BMI 33.4
== END 2025-07-15 11:34 | disposition home or self-care (01) ==
LOC: HO.HGI 10:57
PROVIDERS: Visit Provider Nurse Practitioner Family
DX: Z01.818 Encounter for other preprocedural examination (principal); Z12.11 Encounter for screening for malignant neoplasm of colon; R12 Heartburn; K76.0 Fatty (change of) liver, not elsewhere classified; Z83.79 Family history of other diseases of the digestive system
CPT/HCPCS: S0285